=== PATIENT | male | born 1970 | race Caucasian/White ===

== ENCOUNTER → 2017-05-02 | Outpatient (CLI) | payer OTHER ==
[~2017-05-02] MED LIST: ALLEGRA ALLERGY60 MG PO; ALLEGRA PO; HYDROCODONE-A1 UDTA4 PO; MULTI VITAMIN1 EACH PO; MULTI-VITAMIN1 EAC1 PO; PRILOSEC20 MG PO; XARELTO20 MG PO
--- NOTE | ~2017-05-02 | CT2 ---
[facility] A Service of [facility] RADIOLOGY TEXT RESULTS PATIENT: ANNE BAKER LOCATION: [facility] : 74 UNIT #: [id number] AGE: [address]: Garret Rainey MD SEX: M ORDER DR: [id number] [place] [id number] [facility]. [place], [place] [address] [id number] O MR#: [id number] Acc #: [id number] NAME: ANNE BAKER : 1970 SEX: M STUDY DATE/TIME: 05/02/2017 7:26 UNIT: [facility] ROOM: STUDY DESCRIPTION: CT Abd and Pelv W Cont Attending Physician: Garret Rainey M.D. Referring Physician: Garret Rainey M.D. Ordering Physician: Garret Rainey M.D. Primary Care Physician: Milena Gomez M.D. MEDICAL IMAGING REPORT This report is preliminary unless electronic signature is present EXAM CT abdomen and pelvis INDICATIONS Malignancy neoplasm of the ascending colon. Observation for metastatic disease. Restaging. TECHNIQUE CT abdomen and pelvis with p.o. and IV contrast (100 mL Isovue-370 IV contrast). Coronal and sagittal reconstructions were obtained. The CT exam was performed with one or more of the following radiation dose reduction techniques: automatic exposure control, adjustment of mA and/or kV according to patient size, and iterative reconstruction. COMPARISON CT abdomen and pelvis 05/08/2016. FINDINGS Abdomen: The solid abdominal organs are within normal limits. Gallbladder is not distended. The bowel is not dilated. Patient status post partial right hemicolectomy with subsequent Enterocolonic anastomosis in the right abdomen. No recurrent or residual mass. No enlarged retroperitoneal or mesenteric lymph nodes. There is diastases of the rectus abdominis muscles. There is a prior anterior abdominal wall hernia repair. Appendix is normal in caliber. Pelvis: The bladder is unremarkable. No enlarged pelvic or inguinal lymph nodes. [facility] A Service of [facility] RADIOLOGY TEXT RESULTS PATIENT: [facility] BAKER [id number] 74 UNIT #: [id number] AGE: [address]: Garret Rainey MD SEX: M ORDER DR: No acute osseous abnormalities. IMPRESSION 1. No evidence of metastatic disease in the abdomen or pelvis. Dictated by... Devin Capone M.D. THIS IS AN ELECTRONICALLY VERIFIED REPORT Devin Capone M.D. at 05/02/2017 4:45 PM SKYLA/darling TD: 05/02/2017 16:04 JOB #: [id number] MEDICAL IMAGING REPORT Page 1 of 1 COPY
== END | disposition home or self-care (01) ==
LOC: CCAT 06:17
DX: Z08 Encounter for follow-up examination after completed treatment for malignant neoplasm (principal); D70.1 Agranulocytosis secondary to cancer chemotherapy; E86.0 Dehydration; Z85.038 Personal history of other malignant neoplasm of large intestine; Z90.49 Acquired absence of other specified parts of digestive tract
CPT/HCPCS: 74177; Q9967